=== PATIENT | female | born 1975 | race Caucasian/White ===

== ENCOUNTER 2018-07-12 05:53 | Day surgery (SDC) | payer OTHER ==
[2018-07-11 16:26] LABS: Absolute Lymphocytes (CBC) 1.6 K/uL (0.7-4.9); Absolute Monocytes 0.5 K/uL (0.1-1.3); Absolute Neutrophil 4.3 K/uL (1.8-8.0); Basophils % 0.5 % (0-1.3); Eosinophils % 2.4 % (0-4.4); Hematocrit 39.7 % (36.0-45.0); Lymphocytes % 24.4 % (15.3-44.8); MPV 8.1 fL (7.6-11.3); Monocytes % 7.4 % (3.3-12.3); RBC Red Blood Cell Count 4.45 M/uL (3.86-4.86)
--- OUTSIDE RECORDS SUMMARY | 2018-07-12 06:02 | XMS REPORT ---
:1975 [facility] Address [address] [place] [address] Dr. Mcdermott [address] [place] [id number] Care Team Providers Name Role Phone Unavailable Unavailable Unavailable Problems This patient has no known problems. Allergies, Adverse Reactions, Alerts This patient has no known allergies or adverse reactions. Medications This patient has no known medications.
[2018-07-12] MEDS ORDERED: Ringers Lactate 1,000 ML IV ONE (06:28)
[2018-07-12] MEDS ORDERED: FENTANYL CITR 100 MCG/2 ML ONE (07:03)
[2018-07-12] MEDS ORDERED: PROPOFOL 200 MG/20 ML VIAL IV ONE ×2 (07:03→07:46)
[2018-07-12] MEDS ORDERED: MIDAZOLAM HCL 2 MG/2 ML INJ ONE (07:05)
[2018-07-12] MEDS ORDERED: LIDOCAINE 2% MPF 5 ML VIAL ONE (07:05)
[2018-07-12] MEDS ORDERED: ONDANSETRON 4 MG/2 ML VIAL ONE (07:06)
[2018-07-12] MEDS ORDERED: DOXYCYCLINE 200 MG in NA CHLORIDE 0.9% 250 ML IVPB ONE (07:15)
[2018-07-12] MEDS ORDERED: SILVER NITRATE 1 APPL TOP ONE (07:19)
--- NOTE | 2018-07-12 08:53 | PREOPHP ---
Date of Admission: 07/12/2018 History Of Present Illness: Ms Cohen is a 42-year-old female, 2, para 2-0-0-2 status post a tubal ligation, who is admitted for a treatment of menorrhagia. Periods are extremely heavy, having to wear pads and tampons for protection and still will have accidents in the last 7 and 8 days however, and she has no intermenstrual bleeding. Pap smears have been normal. She has been given the option of an IUD versus a NovaSure endometrial ablation and chosen to go with an ablation. Past Medical History: Includes 2 prior sections, prior gastric bypass surgery. Medications: She is on no medications on a regular basis. Allergies: HAS NO KNOWN ALLERGIES. Social History: She does not smoke. Family History: Noncontributory. Review of Systems: She reports no recent cough, cold, fever, or chills. No recent, nausea, or vomiting. She denies any breast lumps or knots. She denies any bowel or bladder issues. Ultrasound has shown only 1 possible leiomyomata. Physical exam HEENT-negativ Lungs-Clear Heart-Regular rate and rhythm Abdomen-without masses Pelvic-Cx nulliparous, uterus non tender, freely mobile Extremities-Without edema Plan: The patient will undergo D and C, NovaSure endometrial ablation, and hysteroscopy. Risks and benefits are discussed. She has signed operative permit in my presence. HERMES Voice ID: [id number] MTDD
--- NOTE | 2018-07-12 18:47 | OP ---
Surgeon: Antione Vaca MD Anesthesiologist: Dr. Merritt and Paula Tony. Preoperative Diagnosis: Menorrhagia. Procedures: Hysteroscopy, dilation and curettage, NovaSure endometrial ablation. Postoperative Diagnosis: Menorrhagia. Description Of Procedure: After a satisfactory level of general anesthesia was obtained, the patient was prepped and draped in the usual fashion in high leg holders. A bivalve speculum was placed in t he vagina. Cervix visualized, grasped with single-tooth tenaculum. Hysteroscope introduced showing some filmy adhesions and perhaps 1 or 2 small polyps. D and C completed. NovaSure device inserted w ith an intracavity length of 6.5 cm, width of 4.5 cm, power of 161 jarquin. The endometrium was ablate d for 48 seconds. The NovaSure device was removed. The patient was awakened, taken to recovery room in satisfactory condition. Estimated Total Blood Loss: Less than 5 mL. LIBORIO/MARIXA Voice ID: [id number] Report ID: [id number]
--- NOTE | 2018-07-12 18:53 | DS ---
Date of Discharge: 07/12/2018 Final Hospital Discharge Diagnosis: Menorrhagia. Complications: None. Procedures: Hysteroscopy, dilation and curettage, and NovaSure endometrial ablation. Hospital Course: The patient is a 42-year-old female, status post tubal ligation and 2 sanket or sections, who underwent hysteroscopy, D and C, and NovaSure endometrial ablation for caron rrhagia. Lab work included a hemoglobin and hematocrit of 13.2 and 39.7, and a negative serum pregna ncy test. She was dismissed to be seen back in my office in 2 weeks with usual post D and C activity restrictions. A prescription for Tylenol No.3 #5 tablets was called in to the pharmacy the day prio r to her admission. LIBORIO/MARIXA Voice ID: [id number] Report ID: [id number]
== END 2018-07-12 09:38 | disposition home or self-care (01) ==
LOC: OR 05:53
PROVIDERS: ATTEND Specialist
PROC: 0UDB7ZX Extraction of Endometrium, Via Natural or Artificial Opening, Diagnostic (ICD-10-PCS; 2018-07-12)
PROC: 0U5B8ZZ Destruction of Endometrium, Via Natural or Artificial Opening Endoscopic (ICD-10-PCS; principal; 2018-07-12 07:30)
DX: N80.9 Endometriosis, unspecified (principal); N84.0 Polyp of corpus uteri; N92.0 Excessive and frequent menstruation with regular cycle; Z98.84 Bariatric surgery status
CPT/HCPCS: 36415; 84703; 85025; 88305; J2250; J2405; J2704; J3010